=== PATIENT | male | born 1995 | race Caucasian/White ===

== ENCOUNTER 2017-06-07 18:46 | Emergency (ER) | payer OTHER ==
[~2017-06-07] VITALS: Ht 177.8 cm; Wt 66.7 kg
[2017-06-07 18:58] VITALS: BP 147/80
--- NOTE | 2017-06-07 20:20 | NUR ---
21/M PRESENT TO ER C/O TONGUE PAIN x LAST NIGHT 2329. PT DENIES INJURY OR TRUAMA. AIRWAY PATENT, ABLE TO VOCALIZE. PAIN 5/10 ACHING NON-RADIATING. PT UNABLE TO RECAL IF HE INJURED HIS TONGUE..Pupils equal and reactive to light bilaterally. No facial droop noted. No smile deficit noted. Speech normal for patient. Patient is alert and oriented to person, place, time and event. Bilateral hand airborne operations equal. Bilateral foot push equal.
[2017-06-07 20:30] VITALS: BP 140/75
--- NOTE | 2017-06-07 20:30 | NUR ---
Patient discharged with v/s stable. Written and verbal after care instructions given and explained. Patient alert, oriented and verbalized understanding of instructions. Ambulatory with steady gait. All questions addressed prior to discharge. ID band removed. Patient advised to follow up with PMD. Rx of NYSTATIN 100,000, PREDNISONE 50MG, AMOXICILLIN 500, DIFLUCan 150mg given. Patient educated on indication of medication including possible reaction and side effects. Opportunity to ask questions provided and answered.
== END 2017-06-07 20:30 | disposition home or self-care (01) ==
LOC: MED 18:46
DX: B37.0 Candidal stomatitis (principal)
CPT/HCPCS: 99283